=== PATIENT | male | born 1990 | race Caucasian/White ===

== ENCOUNTER 2017-07-20 21:39 | Emergency (ER) | payer SELFPAY ==
[2017-07-20] MEDS ORDERED: Rocephin 1000 MG INJ IM ONE (22:22)
[2017-07-20] MEDS ORDERED: TORAdol 30 mg Injection IM ONE (22:22)
--- NOTE | 2017-07-20 22:26 | ERPHSYRPT ---
- History of Present Illness Time Seen by Provider: 07/20/17 22:23 Source: patient Exam Limitations: no limitations Patient Subjective Stated Complaint: pt states he has an abcessed tooth that he has had for a few months. states he has previously been on an antibiotic but ran out. Triage Nursing Assessment: pt alert and oreinted, asnwers questions approp. pt ambulatory with steady gait noted. respirataions nonlabored with lungs cta. swelling and redness noted to rt jaw. Physician History: pt states he has an abcessed tooth that he has had for a few months. states he has previously been on an antibiotic but ran out. Timing/Duration: week(s) Severity: moderate Associated Symptoms: denies symptoms Allergies/Adverse Reactions: latex Allergy (Verified 07/20/17 22:16) Hx Tetanus, Diphtheria Vaccination/Date Given: Yes Hx Influenza Vaccination/Date Given: No Hx Pneumococcal Vaccination/Date Given: No Immunizations Up to Date: Yes - Review of Systems Constitutional: No Symptoms Eyes: No Symptoms Ears, Nose, & Throat: Mouth Swelling, Loose Teeth Respiratory: No Symptoms - Past Medical History Pertinent Past Medical History: No - Past Surgical History Past Surgical History: No - Social History Smoking Status: Current every day smoker How long have you smoked: 9yrs Exposure to second hand smoke: Yes Drug Use: marijuana Patient Lives Alone: No - Nursing Vital Signs Nursing Vital Signs: Initial Vital Signs Temperature 99.1 F 07/20/17 22:10 Pulse Rate 89 07/20/17 22:10 Respiratory Rate 20 07/20/17 22:10 Blood Pressure 100/80 07/20/17 22:10 O2 Sat by Pulse Oximetry 98 07/20/17 22:10 Pain Scale Pain Intensity 10 - Physical Exam General Appearance: no apparent distress Eye Exam: PERRL/EOMI Ears, Nose, Throat Exam: moist mucous membranes, other (right lower gum swelling with jaw swelling) SpO2: 98 Oxygen Delivery: Room Air - Course Nursing assessment & vital signs reviewed: Yes Ordered Tests: Medication Summary Generic Name Dose Route Start Last Admin Trade Name Freq PRN Reason Stop Dose Admin Ceftriaxone Sodium 1,000 mg 07/20/17 22:22 Rocephin 1000 Mg Inj IM 07/20/17 22:23 STAT ONE Ketorolac Tromethamine 60 mg 07/20/17 22:22 Toradol 30 Mg Injection IM 07/20/17 22:23 STAT ONE - Progress Progress: unchanged Counseled pt/family regarding: diagnosis, need for follow-up - Departure Time of Disposition: 22:24 Departure Disposition: Home Clinical Impression: Dental abscess Condition: Stable Critical Care Time: No Referrals: WALKER GUIDO [Primary Care Provider] - Instructions: Tooth Abscess, Tooth Decay Additional Instructions: Please go and consult dentist for removal of your loose tooth. Please follow the instructions given to you. Please take your medication as prescribed if given. If symptoms recur or get worse, come back to the emergency room if you cannot reach your primary care physician, or call your primary care physician for an appointment. Again if your symptoms get worse, come back to the emergency room. Thanks for visiting emergency room, and let us take care of you. Prescriptions: Ciprofloxacin [Cipro 500 MG] 500 mg PO BIDAC #20 tablet Naproxen 375 mg [Naprosyn 375 mg] 375 mg PO Q8H #30 tablet
[2017-07-20] MEDS ORDERED: TORAdol 30 mg Injection ONE (22:29)
[2017-07-20] MEDS ORDERED: Rocephin 1000 MG INJ ONE (22:29)
[2017-07-20] MEDS ORDERED: XYLOCAINE 1% HCL 20 ML MDV ONE (22:30)
[2017-07-20 23:55] VITALS: BP 118/76; PULSE 92; O2SAT 97
== END 2017-07-20 23:01 | disposition home or self-care (01) ==
LOC: ED 21:39
DX: K04.7 Periapical abscess without sinus (principal)
CPT/HCPCS: 99284; J0696; J1885